=== PATIENT | female | born 1980 | race Two or more races ===

== ENCOUNTER 2016-06-03 07:59 | Emergency (ER) | payer MEDICAID ==
[2016-06-03 08:11] VITALS: O2SAT 96
--- NOTE | 2016-06-03 09:11 | EDPHY ---
H & P Time Seen by Provider: 06/03/16 08:47 HPI/ROS: CHIEF COMPLAINT: Abdominal pain for 2 weeks HISTORY OF PRESENT ILLNESS: This 36-year-old woman presents with chief complaint of left lower quadrant abdominal pain for 2 weeks. She says it radiates into her back and is sharp. She thinks it is her ovary. It is associated with nausea for the last 2 or 3 days and some yellow vaginal discharge and pain with intercourse. She has an IUD in her last vaginal bleeding was 1 month ago. No vomiting and no diarrhea. No recent fall injury or trauma. No urinary symptoms. No fever or chills. REVIEW OF SYSTEMS: Eye: no change in vision ENT: no sore throat Cardiac: Describes central sharp chest pain for the last week which is constant and not radiating. Pulmonary: no cough or SOB Abdomen: HPI Musculoskeletal: no back pain Skin: no rash Neuro: no headache Constitutional: no fever : no urinary symptoms A comprehensive 10 point review of systems is otherwise negative aside from elements mentioned in the history of present illness. PAST MEDICAL HISTORY: Anxiety and depression, cholecystectomy. Has IUD. Social history: Nonsmoker, family history negative for premature coronary disease or venous thromboembolism. General Appearance: Alert and conversant, cooperative. Eyes: No scleral icterus. ENT, Mouth: Normal mucous membranes. Respiratory: Normal respiratory effort, breath sounds equal, lungs are clear to auscultation. Cardiovascular: Regular rate and rhythm. Gastrointestinal: Abdomen is soft and non tender. No rebound or guarding. No focal tenderness. Not distended. Neurological: Alert and oriented x3. Normally conversant. Face symmetric, normal movement and sensation in all extremities. Skin: Warm and dry, no rashes. Musculoskeletal: No peripheral edema and no joint swelling. Psychiatric: Not agitated. Emergency Department course/MDM: EKG, but low suspicion for coronary disease or pulmonary embolism. Plan for pelvic exam, urinalysis and urine test. Low clinical suspicion for acute surgical abdominal process, TOA, ovarian torsion. Pelvic exam performed with nurse Shannen escalona at 9:35 a.m. shows normal external and internal genitalia, no cervical motion tenderness, no significant visible discharge. GC and chlamydia sent. 945: Results discussed, patient does not have clinical exam suggesting need to treat her empirically for PID, will await results of STD testing. 06/04 spoke with registered radiographer, will call in metronidazole 500 bid x 7 d for clue cells and vaginal discharge, rx for bacterial vaginosis. / spoke with registered radiographer re (+) Chlamydia, pt contacted and doxy Rx 100 bid x 10 days called in. Smoking Status: Former smoker Constitutional: Initial Vital Signs Temperature (C) 36.6 C 06/03/16 08:07 Heart Rate 67 06/03/16 08:07 Respiratory Rate 16 06/03/16 08:07 Blood Pressure 112/66 06/03/16 08:07 O2 Sat (%) 96 06/03/16 08:07 O2 Delivery Mode Room Air Allergies/Adverse Reactions: naproxen [Naproxen] Allergy (Intermediate, Verified 03/19/16 10:19) Hives Home Medications: Medication Instructions Recorded Levonorgestrel [Mirena] 1 each IY 10/21/13 Medical Decision Making - Diagnostics EKG Interpretation: 12-lead EKG interpreted by me; official reading is in trace master. My interpretation is sinus rhythm, rate 58, no acute ischemic changes. Differential Diagnosis: Differential diagnosis considered for abdominal pain including but not limited to ectopic, renal colic, PID, appendicitis, cholecystitis, pancreatitis, gastritis and urinary tract infection. Departure - Departure Disposition: Home, Routine, Self-Care Clinical Impression: Bacterial vaginal infection Abdominal pain Qualifiers: Abdominal location: left lower quadrant Qualified Code(s): R10.32 - Left lower quadrant pain Condition: Good Instructions: Chest Pain (ED), Acute Abdominal Pain (ED) Additional Instructions: Normal EKG. Call [phone] tomorrow for results of STD testing. Referrals: NONE *PRIMARY CARE P,. [Primary Care Provider] - As per Instructions Lucero Hall MD [Medical Doctor] - As per Instructions
--- NOTE | 2016-06-03 09:24 | CPEKG ---
Heart Rate: 58 RR Interval: 1034 P-R Interval: 180 QRSD Interval: 86 QT Interval: 400 QTC Interval: 393 P Shannon: 8 QRS Shannon: 24 T Wave Shannon: 16 EKG Severity - NORMAL ECG - EKG Impression: SINUS RHYTHM Electronically Signed By: Darwin Boss 03-Jun-2016 09:25:01
[2016-06-03 09:25] LABS: COLOR YELLOW; LEUKOCYTE ESTERASE,URINE 2+ (NEGATIVE); NITRITE,URINE NEGATIVE (NEGATIVE)
[2016-06-03 09:35] LABS: MUCUS TRACE /lpf (NONE-1+)
[2016-06-03 10:06] VITALS: BP 108/64; PULSE 50; RESP 18; TEMP 98.4
[2016-06-04 10:21] LABS: CHLAMYDIA AMPLIFICATION GENPRB POSITIVE (NEGATIVE)
== END 2016-06-03 10:05 | disposition home or self-care (01) ==
DX: R10.32 Left lower quadrant pain (principal); N76.0 Acute vaginitis; Z90.49 Acquired absence of other specified parts of digestive tract; Z87.891 Personal history of nicotine dependence

== ENCOUNTER 2016-07-11 09:48 | Emergency (ER) | payer MEDICAID ==
[2016-07-11] MEDS ORDERED: PROPARACAINE 0.5% 15 ML OPHT DROP ONE (10:13)
[2016-07-11] MEDS ORDERED: FLUORESCEIN SODIUM 1 MG STRIP OP ONE ×2 (10:13→10:14)
[2016-07-11] MEDS ORDERED: CETIRIZINE 10 MG TAB PO ONE (10:14)
[2016-07-11] MEDS ORDERED: PSEUDOEPHEDRINE HCL 30 MG TAB PO ONE (10:14)
--- NOTE | 2016-07-11 10:27 | EDPHY ---
H & P Stated Complaint: SEEN WED DX CONJUNCTIVITIS/NOT BETTER Time Seen by Provider: 07/11/16 09:57 HPI/ROS: CHIEF COMPLAINT: eye complaints HISTORY OF PRESENT ILLNESS: 36-year-old female presents emergency department complaining of worsening eye discomfort. Patient was seen at an urgent care 5 days ago and diagnosed with a conjunctivitis, she was given sulfacetamide eyedrops. Her symptoms were originally in her right eye and now have moved to her left eye. Patient reports her symptoms are worsening, not improving. The symptoms are associated runny nose, sneezing, itchy ears, itchy throat and her eyes are itching. No fevers or chills, no nausea or vomiting, no swelling in her throat, no difficulty swallowing. Patient reports blurred vision but only because of the tearing in her eyes. REVIEW OF SYSTEMS: A comprehensive 10 point review of systems is otherwise negative aside from elements mentioned in the history of present illness. Source: Patient Exam Limitations: No limitations - Personal History LMP (Females 10-55): IUD In Place Current Tetanus/Diphtheria Vaccine: Yes Tetanus Vaccine Date: 2006 - Medical/Surgical History Hx Asthma: No Hx Chronic Respiratory Disease: No Hx Diabetes: No Hx Cardiac Disease: No Hx Renal Disease: No Hx Cirrhosis: No Hx Alcoholism: No Hx HIV/AIDS: No Hx Splenectomy or Spleen Trauma: No Other PMH: medical anxiety, depression, GERD, obesity. surgery cholycystectomy, . - Social History Smoking Status: Former smoker - Physical Exam Exam: General: Alert, nontoxic. ENT: Tympanic membranes clear, external auditory canal, external ear and surrounding soft tissue including over the mastoid unremarkable. Nasopharynx is pale and boggy, there is clear rhinorrhea. Oropharynx with erythema. There is no exudate. No tonsillar hypertrophy. No asymmetry. The uvula is midline. No elevation of tongue. There is no hoarseness. No drooling, patient has good control of their oral secretions. No trismus. No stridor. Visual Acuity: Noted from Nurse's notes. Pupils: PERRLA, EOMI, no nystagmus, no trauma, no injection. Lids: bilateral edema upper and lower lids Skin: No proptosis, no periorbital erythema, no vesicles Conjunctivae: injected, not icteric, tearing Cornea: Exam with slit lamp and fluoroscein shows no corneal abrasion, negative Angle Anterior chamber: Normal, no hyphema or hypopyon Cardiac: Regular rate and rhythm. Respiratory: Lungs clear to auscultation bilaterally. Neurological: no meningismus. Skin: No rashes. Constitutional: Initial Vital Signs Temperature (C) 36.7 C 07/11/16 09:53 Heart Rate 70 07/11/16 09:53 Respiratory Rate 18 07/11/16 09:53 Blood Pressure 108/64 07/11/16 09:53 O2 Sat (%) 94 07/11/16 09:53 O2 Delivery Mode Room Air Allergies/Adverse Reactions: naproxen [Naproxen] Allergy (Intermediate, Verified 07/11/16 09:52) Hives Home Medications: Medication Instructions Recorded Levonorgestrel [Mirena] 1 each IY 10/21/13 Fluticasone Nasal [Flonase Nasal 1 sprays NASAL DAILY #1 mdi 07/11/16 [place] (RX)] Olopatadine 0.1% [Patanol 0.1% 1 drops EACHEYE Q6-8PRN PRN #1 07/11/16 Opht Drop (RX)] bottle Sodium Sulfacetamide 07/11/16 Medical Decision Making ED Course/Re-evaluation: 36-year-old female presents emergency department with worsening conjunctivitis. Patient was placed on sulfacetamide drops 5 days ago that are not improving and has spread to her left eye. She reports feeling like there is sand and great in her eyes, sneezing, nasal congestion, eye swelling. Patient reports normal seasonal allergies though reports this year is worse and she has never had severe eye symptoms like this before. Fluorescein exam reveals no corneal abrasion. Patient has been diagnosed with an allergic conjunctivitis. I am recommending Zyrtec, Flonase, Zaditor eyedrops and she has been given a prescription for Patanol eyedrops if this added or does not work. Patient is given the name of an door puller for follow-up for symptoms that are not improving. Patient is comfortable with this plan. Differential Diagnosis: Diagnosis considered but not limited to allergic conjunctivitis, bacterial conjunctivitis, corneal abrasion, iritis - Data Points Medications Given: Discontinued Medications Cetirizine HCl (Zyrtec) 10 mg PO EDNOW ONE Stop: 07/11/16 10:15 Last Admin: 07/11/16 10:40 Dose: 10 mg Pseudoephedrine HCl (Sudafed) 30 mg PO EDNOW ONE Stop: 07/11/16 10:15 Last Admin: 07/11/16 10:40 Dose: 30 mg Departure - Departure Disposition: Home, Routine, Self-Care Clinical Impression: Allergic conjunctivitis and rhinitis Qualifiers: Laterality: bilateral Qualified Code(s): H10.13 - Acute atopic conjunctivitis, bilateral Condition: Good Instructions: Allergic Rhinitis (ED), Conjunctivitis (ED) Additional Instructions: Take 10 mg of Zyrtec twice daily. Use over the counter Zatador eye drops- you can buy the generic. Use Flonase 1 spray in each nostril daily for 7 days. Take 30 mg of Sudafed every 6 hours as for congestion. Drink plenty of fluids, use a humidifier at night. Use [id number] saline lubricating drops as much as needed. Fill the Patanol prescription eyedrops if the Zaditor does not work. Follow up with the door puller if symptoms are worsening or not improving in the next 2-3 days. Return to the emergency department for any new symptoms or concerns. Referrals: Benton Dallas MD [Medical Doctor] - As per Instructions ([facility] on- call) Stand Alone Forms: Work Excuse Prescriptions: Fluticasone Nasal [Flonase Nasal [place] (RX)] 1 sprays NASAL DAILY #1 mdi Olopatadine 0.1% [Patanol 0.1% Opht Drop (RX)] 1 drops EACHEYE Q6-8PRN PRN #1 bottle PRN Reason: Dry Irritated Eyes
[2016-07-11 11:13] VITALS: BP 127/88; PULSE 55; RESP 16; TEMP 97.7; O2SAT 96
== END 2016-07-11 11:13 | disposition home or self-care (01) ==
DX: H10.13 Acute atopic conjunctivitis, bilateral (principal); Z87.891 Personal history of nicotine dependence

== ENCOUNTER 2016-07-26 22:54 | Emergency (ER) | payer MEDICAID ==
[2016-07-26 23:04] VITALS: BP 130/67; PULSE 62; RESP 16; TEMP 98.4; O2SAT 97
[2016-07-26] MEDS ORDERED: IBUPROFEN 200 MG TAB PO ONE ×2 (23:19→23:26)
[2016-07-26 23:28] LABS: COLOR YELLOW; LEUKOCYTE ESTERASE,URINE 3+ (NEGATIVE); NITRITE,URINE NEGATIVE (NEGATIVE)
[2016-07-26 23:35] LABS: BACTERIA TRACE /hpf (NONE SEEN)
--- NOTE | 2016-07-27 00:07 | EDPHY ---
H & P Stated Complaint: back/abd pain HPI/ROS: Chief complaint: Back pain HPI: 36-year-old obese woman with a history of chronic back pain presenting with worsening of her pain on the left side for the last several days. She has been taking ibuprofen 600 mg every morning with no significant relief. She is also having some low abdominal cramping. No nausea or vomiting or diarrhea. No new numbness or weakness. She is ambulating with some discomfort without other difficulty. No fevers or chills. No history of IV drug use or other risk factors for infection. No urinary urgency or frequency. ROS: 10 point Review of Systems is negative except as noted in the HPI. PMH: Chronic back pain Social History: No smoking, no alcohol, no recreational drug use Family History: non-contributory Physical Exam: Gen: Awake, Alert, No Distress HEENT: Nose: no rhinorrhea Eyes: PERRLA, EOMI Mouth: Moist mucosa Abd: Soft, non-tender, no guarding, obese Back: no CVA tenderness, no midline tenderness mild left paraspinal tenderness reproducing presenting complaint Ext: no edema, non-tender Skin: no rash Neuro: CN II-XII intact, Sensation grossly intact, Strength 5/5 in bilateral upper and lower extremities - Personal History LMP (Females 10-55): Extended Cycle BCP/Inj Current Tetanus/Diphtheria Vaccine: No Current Tetanus Diphtheria and Acellular Pertussis (TDAP): No Tetanus Vaccine Date: 2006 - Medical/Surgical History Hx Asthma: No Hx Chronic Respiratory Disease: No Hx Diabetes: No Hx Cardiac Disease: No Hx Renal Disease: No Hx Cirrhosis: No Hx Alcoholism: No Hx HIV/AIDS: No Hx Splenectomy or Spleen Trauma: No Other PMH: medical anxiety, depression, GERD, obesity. surgery cholycystectomy, . - Social History Smoking Status: Former smoker Constitutional: Initial Vital Signs Temperature (C) 36.9 C 07/26/16 23:02 Heart Rate 62 07/26/16 23:02 Respiratory Rate 16 07/26/16 23:02 Blood Pressure 130/67 H 07/26/16 23:02 O2 Sat (%) 97 07/26/16 23:02 O2 Delivery Mode Room Air Allergies/Adverse Reactions: naproxen [Naproxen] Allergy (Intermediate, Verified 07/26/16 23:01) Hives Home Medications: Medication Instructions Recorded Levonorgestrel [Mirena] 1 each IY 10/21/13 Nitrofurantoin Monohyd/M-Cryst 100 mg PO BID #10 capsule 07/27/16 [Macrobid 100 mg Capsule] Medical Decision Making ED Course/Re-evaluation: Urinalysis consistent with urinary tract infection. I believe this is exacerbating her chronic back pain. Will treat her with antibiotics. She can increase her ibuprofen. Will also give her a to go pack of hydrocodone here to get her pain under control but will not be giving her prescription now is anticipate treatment of her infection will improve her pain. - Data Points Laboratory Results: 07/26/16 23:21 Urine Color YELLOW Urine Appearance HAZY Urine pH 5.0 (5.0-7.5) Ur Specific [place] 1.018 (1.002-1.030) Urine Protein NEGATIVE (NEGATIVE) Urine Ketones NEGATIVE (NEGATIVE) Urine Blood 1+ H (NEGATIVE) Urine Nitrate NEGATIVE (NEGATIVE) Urine Bilirubin NEGATIVE (NEGATIVE) Urine Urobilinogen NEGATIVE EU EU (0.2-1.0) Ur Leukocyte Esterase 3+ H (NEGATIVE) Urine RBC 5-10 /hpf H /hpf (0-3) Urine WBC 10-15 /hpf H /hpf (0-3) Ur Epithelial Cells TRACE /lpf /lpf (NONE-1+) Urine Bacteria TRACE /hpf H /hpf (NONE SEEN) Urine Glucose NEGATIVE (NEGATIVE) Departure - Departure Disposition: Home, Routine, Self-Care Clinical Impression: Urinary tract infection, Back pain Condition: Good Instructions: Back Pain (ED), Urinary Tract Infection in Women (ED) Additional Instructions: He may take ibuprofen 600 mg every 6-8 hours as needed for aches and pains. Take her full course of antibiotics. Follow up with primary care physician in 3-4 days for re-evaluation. Referrals: NONE *PRIMARY CARE P,. [Primary Care Provider] - As per Instructions Nancy Romo MD [[facility] [place]] - As per Instructions Prescriptions: Nitrofurantoin Monohyd/M-Cryst [Macrobid 100 mg Capsule] 100 mg PO BID #10 capsule
[2016-07-27] MEDS ORDERED: HYDROCOD/APAP 5/325 PREPACK#6 BTL TAKEHOME ONE (00:17)
[2016-07-27] MEDS ORDERED: NITROFURANTOIN 100MG PREPACK#2 BTL TAKEHOME ONE (00:17)
== END 2016-07-27 00:31 | disposition home or self-care (01) ==
DX: N39.0 Urinary tract infection, site not specified (principal); B96.89 Other specified bacterial agents as the cause of diseases classified elsewhere; Z87.891 Personal history of nicotine dependence; Z90.49 Acquired absence of other specified parts of digestive tract

== ENCOUNTER 2016-08-03 23:17 | Emergency (ER) | payer MEDICAID ==
[2016-08-03 23:25] VITALS: RESP 20; O2SAT 93
[2016-08-03 23:59] LABS: COLOR YELLOW; LEUKOCYTE ESTERASE,URINE 2+ (NEGATIVE); NITRITE,URINE NEGATIVE (NEGATIVE)
[2016-08-04] MEDS ORDERED: NS 1,000 ML IV ONE (00:02)
--- NOTE | 2016-08-04 00:02 | EDPHY ---
H & P Stated Complaint: back pain not improving, fever Time Seen by Provider: 08/03/16 23:30 HPI/ROS: HPI The patient presents with fever for the last 1 day as high as 101.7, improved with ibuprofen at home. This is associated with left-sided back pain which she has had for the last 5 days. She also has nausea and says that she vomits once each morning. She is otherwise able to tolerate fluids and food by mouth. The pain in her back is pressure like in nature, does not radiate. She does have chronic back pain but says this feels different somehow. She denies any urinary symptoms She was seen in the emergency room about 1 week ago and was diagnosed with urinary tract infection. Her symptoms have not improved.. REVIEW OF SYSTEMS Constitutional: No fever, no chills. Eyes: No discharge. ENT: No sore throat. Cardiovascular: No chest pain, no palpitations. Respiratory: No cough, no shortness of breath. Gastrointestinal: See HPI Genitourinary: No hematuria. Musculoskeletal: No back pain. Skin: No rashes. Neurological: No headache. PMHx: Chronic back pain PHYSICAL General Appearance: Alert, no distress Eyes: Pupils equal and round no pallor or injection ENT, Mouth: Mucous membranes moist Respiratory: There are no retractions, lungs are clear to auscultation Cardiovascular: Regular rate and rhythm Gastrointestinal: Abdomen is soft and non-tender, no masses, bowel sounds normal Back: No midline tenderness, mild left-sided CVAT Neurological: A&O, moves all extremities Skin: Warm and dry, no rashes Musculoskeletal: Neck is supple non tender Extremities: symmetrical, full range of motion Psychiatric: Patient is oriented X 3, there is no agitation Source: Patient Exam Limitations: No limitations - Personal History LMP (Females 10-55): IUD In Place Tetanus Vaccine Date: 2006 - Medical/Surgical History Hx Asthma: No Hx Chronic Respiratory Disease: No Hx Diabetes: No Hx Cardiac Disease: No Hx Renal Disease: No Hx Cirrhosis: No Hx Alcoholism: No Hx HIV/AIDS: No Hx Splenectomy or Spleen Trauma: No Other PMH: medical anxiety, depression, GERD, obesity. surgery cholycystectomy, . - Social History Smoking Status: Former smoker Constitutional: Initial Vital Signs Temperature (C) 37.6 C 08/03/16 23:22 Heart Rate 78 08/03/16 23:22 Respiratory Rate 20 08/03/16 23:22 Blood Pressure 125/82 H 08/03/16 23:22 O2 Sat (%) 93 08/03/16 23:22 O2 Delivery Mode Room Air Allergies/Adverse Reactions: naproxen [Naproxen] Allergy (Intermediate, Verified 08/03/16 23:22) Hives Home Medications: Medication Instructions Recorded Levonorgestrel [Mirena] 1 each IY 10/21/13 Nitrofurantoin Monohyd/M-Cryst 100 mg PO BID #10 capsule 07/27/16 [Macrobid 100 mg Capsule] levOFLOXACIN [Levofloxacin] 750 mg PO DAILY #7 tablet 08/04/16 Medical Decision Making Differential Diagnosis: This is a 36-year-old female with history of low back pain, recent diagnosis of UTI who presents from home with fevers today as high as 101.7 per her report, nausea, intermittent vomiting, left-sided flank pain. On exam she has normal vital signs, she has CVA tenderness on the left. She does not have any midline spinal tenderness. Differential diagnoses considered include urinary tract infection, ureterolithiasis, pyelonephritis, less likely epidural spinal abscess given no midline tenderness or risk factors. In the emergency room patient was given IV fluids for nausea and vomiting, labs were checked and revealed signs of urinary tract infection. Given her symptomatology, she was given a dose of ceftriaxone. I reviewed her urine cultures historically and it seems they are mostly contaminated. His I will treat her with levofloxacin for pyelonephritis. I have encouraged her to find a primary care doctor, she does not want to be seen at [facility]. I have discussed return precautions with her. - Data Points Laboratory Results: Laboratory Results 08/04/16 00:15 08/04/16 00:15 08/04/16 08/04/16 08/04/16 00:15 00:15 00:15 WBC 6.55 10^3/uL 10^3/uL (3.80-9.50) RBC 4.66 10^6/uL 10^6/uL (4.18-5.33) Hgb 12.9 g/dL g/dL (12.6-16.3) Hct 38.8 % % (38.0-47.0) MCV 83.3 fL fL (81.5-99.8) MCH 27.7 pg L pg (27.9-34.1) MCHC 33.2 g/dL g/dL (32.4-36.7) RDW 13.8 % % (11.5-15.2) Plt Count 208 10^3/uL 10^3/uL (150-400) MPV 10.4 fL fL (8.7-11.7) Neut % (Auto) 64.6 % % (39.3-74.2) Lymph % (Auto) 26.3 % % (15.0-45.0) [place] % (Auto) 6.9 % % (4.5-13.0) Eos % (Auto) 1.7 % % (0.6-7.6) Baso % (Auto) 0.2 % L % (0.3-1.7) Nucleat RBC Rel Count 0.0 % % (0.0-0.2) Absolute Neuts (auto) 4.24 10^3/uL 10^3/uL (1.70-6.50) Absolute Lymphs (auto) 1.72 10^3/uL 10^3/uL (1.00-3.00) Absolute Monos (auto) 0.45 10^3/uL 10^3/uL (0.30-0.80) Absolute Eos (auto) 0.11 10^3/uL 10^3/uL (0.03-0.40) Absolute Basos (auto) 0.01 10^3/uL L 10^3/uL (0.02-0.10) Absolute Nucleated RBC 0.00 10^3/uL 10^3/uL (0-0.01) Immature Gran % 0.3 % % (0.0-1.1) Immature Gran # 0.02 10^3/uL 10^3/uL (0.00-0.10) Sodium 142 mEq/L mEq/L (134-144) Potassium 4.0 mEq/L mEq/L (3.5-5.2) Chloride 107 mEq/L mEq/L (97-110) Carbon Dioxide 24 mEq/l mEq/l (22-31) Anion Gap 11 mEq/L mEq/L (8-16) BUN 15 mg/dL mg/dL (7-23) Creatinine 0.8 mg/dL mg/dL (0.6-1.0) Estimated GFR > 60 Glucose 104 mg/dL H mg/dL (70-100) Calcium 8.7 mg/dL mg/dL (8.5-10.4) Beta HCG, Qual NEGATIVE Urine Color Urine Appearance Urine pH Ur Specific [place] Urine Protein Urine Ketones Urine Blood Urine Nitrate Urine Bilirubin Urine Urobilinogen Ur Leukocyte Esterase Urine RBC Urine WBC Ur Epithelial Cells Urine Glucose 08/03/16 23:45 WBC RBC Hgb Hct MCV MCH MCHC RDW Plt Count MPV Neut % (Auto) Lymph % (Auto) [place] % (Auto) Eos % (Auto) Baso % (Auto) Nucleat RBC Rel Count Absolute Neuts (auto) Absolute Lymphs (auto) Absolute Monos (auto) Absolute Eos (auto) Absolute Basos (auto) Absolute Nucleated RBC Immature Gran % Immature Gran # Sodium Potassium Chloride Carbon Dioxide Anion Gap BUN Creatinine Estimated GFR Glucose Calcium Beta HCG, Qual Urine Color YELLOW Urine Appearance CLEAR Urine pH 5.0 (5.0-7.5) Ur Specific [place] 1.021 (1.002-1.030) Urine Protein NEGATIVE (NEGATIVE) Urine Ketones NEGATIVE (NEGATIVE) Urine Blood 1+ H (NEGATIVE) Urine Nitrate NEGATIVE (NEGATIVE) Urine Bilirubin NEGATIVE (NEGATIVE) Urine Urobilinogen NEGATIVE EU EU (0.2-1.0) Ur Leukocyte Esterase 2+ H (NEGATIVE) Urine RBC 10-15 /hpf H /hpf (0-3) Urine WBC 10-15 /hpf H /hpf (0-3) Ur Epithelial Cells TRACE /lpf /lpf (NONE-1+) Urine Glucose NEGATIVE (NEGATIVE) Medications Given: Discontinued Medications Sodium Chloride (Ns) 1,000 mls @ 0 mls/hr IV ONCE ONE PRN Reason: Wide Open Stop: 08/04/16 00:03 Last Admin: 08/04/16 00:15 Dose: 1,000 mls Ceftriaxone Sodium/Dextrose (Rocephin 1 Gm (Premix)) 50 mls @ 100 mls/hr IV EDNOW ONE PRN Reason: Protocol Stop: 08/04/16 01:03 Last Admin: 08/04/16 01:06 Dose: 50 mls Departure - Departure Disposition: Home, Routine, Self-Care Clinical Impression: Acute pyelonephritis Condition: Good Instructions: Kidney Infection (ED) Additional Instructions: Please return to the emergency room if your worse in any way. Referrals: NONE *PRIMARY CARE P,. [Primary Care Provider] - As per Instructions Prescriptions: levOFLOXACIN [Levofloxacin] 750 mg PO DAILY #7 tablet
[2016-08-04 00:23] LABS: % IMMATURE GRANULYOCYTES 0.3 % (0.0-1.1); ABSOLUTE IMMATURE GRANULOCYTES 0.02 10^3/uL (0.00-0.10); ADD DIFF? NO; ADD MORPH? NO; ADD SCAN? NO; ATYPICAL LYMPHOCYTE FLAG 40 (0-99); FRAGMENT RBC FLAG 0 (0-99); HEMATOCRIT 38.8 % (38.0-47.0); HEMOGLOBIN 12.9 g/dL (12.6-16.3); LEFT SHIFT FLG 0 (0-99); LIPEMIA HEMOLYSIS FLAG 80 (0-99); MEAN CELL HEMOGLOBIN 27.7 pg (27.9-34.1); MEAN CELL HEMOGLOBIN CONCENTR. 33.2 g/dL (32.4-36.7); MEAN CELL VOLUME 83.3 fL (81.5-99.8); MEAN PLATELET VOLUME 10.4 fL (8.7-11.7); PLATELET CLUMPS FLAG 0 (0-99); PLATELET COUNT 208 10^3/uL (150-400); RED BLOOD CELL COUNT 4.66 10^6/uL (4.18-5.33); RED CELL DISTRIBUTION WIDTH 13.8 % (11.5-15.2)
[2016-08-04 00:35] LABS: ANION GAP 11 mEq/L (8-16); CALCIUM 8.7 mg/dL (8.5-10.4); CARBON DIOXIDE 24 mEq/l (22-31); CHLORIDE 107 mEq/L (97-110); CREATININE 0.8 mg/dL (0.6-1.0); GLOMERULAR FILTRATION RATE > 60; GLUCOSE 104 mg/dL (70-100); SODIUM 142 mEq/L (134-144)
[2016-08-04 01:58] VITALS: BP 128/76; PULSE 70; TEMP 98.1
== END 2016-08-04 01:58 | disposition home or self-care (01) ==
DX: N10 Acute pyelonephritis (principal); B96.89 Other specified bacterial agents as the cause of diseases classified elsewhere; Z87.891 Personal history of nicotine dependence
CPT/HCPCS: 96365; J0696

== ENCOUNTER 2016-11-11 19:55 | Emergency (ER) | payer MEDICAID ==
[2016-11-11 20:10] VITALS: TEMP 98.2
--- NOTE | 2016-11-11 21:02 | EDPHY ---
H & P Time Seen by Provider: 11/11/16 20:20 HPI/ROS: CHIEF COMPLAINT: Left ankle injury HISTORY OF PRESENT ILLNESS: 36-year-old female presents to the emergency department with injury isolated to her left ankle. The patient states around 4: 00 p.m. she was running around the house trying to find something that she thought was burning and she then noted pain in her left ankle. She denies any specific known injury or trauma. She has pain especially when she tries to move it or when she tries to bear weight. She denies any other injury or trauma. ROS: Denies numbness or tingling in her toes, pain in her left knee or hip. Past Medical/Surgical History: IUD, anxiety, depression, GERD, obesity, cholecystectomy Social History: Lives in [place] Smoking Status: Former smoker Physical Exam: On examination there is no obvious effusion or swelling noted to the left ankle. She has reproducible pain with palpation to the medial aspect of her left ankle just distal to the medial malleolus. She has limited dorsiflexion secondary to pain. She has full plantar flexion. Normal sensation to light touch with normal 2 point discrimination. Strong dorsalis pedis pulse on the dorsal aspect of the left foot. Gait is not tested due to pain. Constitutional: Initial Vital Signs Temperature (C) 36.8 C 11/11/16 20:06 Heart Rate 66 11/11/16 20:06 Respiratory Rate 18 11/11/16 20:06 Blood Pressure 123/75 H 11/11/16 20:06 O2 Sat (%) 95 11/11/16 20:06 O2 Delivery Mode Room Air Allergies/Adverse Reactions: naproxen [Naproxen] Allergy (Intermediate, Verified 11/11/16 20:04) Hives Home Medications: Medication Instructions Recorded Levonorgestrel [Mirena] 1 each IY 10/21/13 Ibuprofen 11/11/16 traMADol 11/11/16 MDM/Departure - MDM Imaging Results: X-rays of the left ankle reveal avulsion fracture to the medial malleolus. This is reviewed by myself the PAC system. Radiology interpretation to follow. Imaging: I viewed and interpreted images myself Procedures: Patient was placed in a Fontenot boot and examined post application in good placement with normal SECURITY FLEX OFFICER. ED Course/Re-evaluation: 36-year-old female presents to the emergency department with left ankle injury. X-rays reveal avulsion fracture to the medial malleolus. She was placed in a Fontenot boot, given crutches and will be nonweightbearing. She was given orthopedic referral. - Depart Disposition: Home, Routine, Self-Care Clinical Impression: Closed left ankle fracture Qualifiers: Encounter type: initial encounter Qualified Code(s): S82.892A - Other fracture of left lower leg, initial encounter for closed fracture Condition: Good Instructions: Ankle Fracture (ED) Additional Instructions: Fontenot boot, use crutches, nonweightbearing. Ibuprofen 600 mg every 8 hours as needed for pain. Follow up with orthopedic surgeon in 1 week to recheck. Referrals: Carlos Thompson MD [Medical Doctor] - 2-3 days without fail (Orthopedic surgeon on-call)
[2016-11-11 22:40] VITALS: BP 114/50; PULSE 83; RESP 16; O2SAT 94
== END 2016-11-11 22:39 | disposition home or self-care (01) ==
DX: S82.892A Other fracture of left lower leg, initial encounter for closed fracture (principal); Z87.891 Personal history of nicotine dependence; X58.XXXA Exposure to other specified factors, initial encounter; Y92.009 Unspecified place in unspecified non-institutional (private) residence as the place of occurrence of the external cause; Y99.8 Other external cause status; Y93.02 Activity, running
CPT/HCPCS: L4386

== ENCOUNTER 2016-11-16 13:58 | Emergency (ER) | payer MEDICAID ==
[2016-11-16 14:04] VITALS: TEMP 97.7
--- NOTE | 2016-11-16 14:26 | EDPHY ---
H & P Time Seen by Provider: 11/16/16 14:15 HPI/ROS: CHIEF COMPLAINT: Great toe numbness HISTORY OF PRESENT ILLNESS: This patient is a 36 year old female presenting for evaluation of pain and numbness in her toes developing following an ankle avulsion fracture five days ago. She was evaluated here 11/11/16 and diagnosed with an avulsion fx of the medial malleolus. She has been wearing her Fontenot boot since that time, except when sleeping, and using her crutches. She has developed pain and tingling in her toes, primarily in her great toe. The tingling in her great toe is constant , elsewhere in her foot her symptoms are intermittent. She endorses occasional pain radiating up to her knee. She is scheduled for an appointment with an orthopedic surgeon on Tuesday. No trauma or other complaints. REVIEW OF SYSTEMS: A 10 point review of systems was performed and is negative with the exception of the elements mentioned in the history of present illness. Past Medical/Surgical History: Anxiety, Depression, GERD, Obesity, Cholecystectomy, L foot fracture Social History: Lives in [facility]. . Smoking Status: Former smoker Physical Exam: General Appearance: Alert Neurological: decreased sensation to light touch on the dorsal and plantar aspects of the first toe. Normal sensation on the lateral/medial aspect of the first toe, the 2nd-5th toes and the remainder of the foot. Skin: Warm and dry, no erythema or swelling Extremities: Tenderness over 1st and 2nd metatarsals Constitutional: Initial Vital Signs Temperature (C) 36.5 C 11/16/16 14:01 Heart Rate 72 11/16/16 14:01 Respiratory Rate 18 11/16/16 14:01 Blood Pressure 111/73 11/16/16 14:01 O2 Sat (%) 95 11/16/16 14:01 O2 Delivery Mode Room Air Allergies/Adverse Reactions: naproxen [Naproxen] Allergy (Intermediate, Verified 11/16/16 14:01) Hives Home Medications: Medication Instructions Recorded Levonorgestrel [Mirena] 1 each IY 10/21/13 Ibuprofen 11/11/16 traMADol 11/11/16 Medical Decision Making ED Course/Re-evaluation: 36 year old female presents paresthesias of the great toe following an ankle avulsion fracture 5 days ago. Plan for foot x-ray. Left foot x-ray is normal. Paresthesias likely secondary to boot, encouraged pt to removethe boot when sitting/supine. No swelling of foot/ankle, so swelling is not the cause. Plan to discharge home in good condition. She will follow up with orthopedics this Tuesday as scheduled. She will remove her boot while sitting and sleeping. Return precautions discussed. The patient is comfortable with this plan. Departure - Departure Disposition: Home, Routine, Self-Care Clinical Impression: Paresthesia of left foot Condition: Good Instructions: Ankle Fracture (ED), Paresthesia (ED) Additional Instructions: 1. Follow up with the employee development specialist as scheduled. 2. Keep your ankle elevated whenever possible. You may keep your boot off when sitting or sleeping. Wear it at all times when walking until follow up with the employee development specialist. 3. Return to the emergency department for worsening pain, swelling, numbness, weakness or other concerns. Referrals: Delia Staley MD [Primary Care Provider] - As per Instructions Carlos Thompson MD [Medical Doctor] - As per Instructions Report Scribed for: Nancy Mendieta Report Scribed by: Jasmyn Gates Date of Report: 11/16/16 Time of Report: 14:28 Physician Review and Approval Statement: 11/16/16 14:28 Portions of this note were transcribed by a medical records custodian. I personally performed a history, physical exam, medical decision making, and confirmed accuracy of information the transcribed note.
[2016-11-16 15:36] VITALS: BP 112/85; PULSE 80; RESP 16; O2SAT 98
== END 2016-11-16 15:36 | disposition home or self-care (01) ==
DX: R20.2 Paresthesia of skin (principal); Z87.891 Personal history of nicotine dependence

== ENCOUNTER 2017-01-28 16:10 | Emergency (ER) | payer MEDICAID ==
[2017-01-28 16:16] VITALS: TEMP 98.2
--- NOTE | 2017-01-28 16:55 | EDPHY ---
H & P Time Seen by Provider: 01/28/17 16:47 HPI/ROS: CHIEF COMPLAINT: Light green/klein stool color HISTORY OF PRESENT ILLNESS: The patient is a 36 y/o female complaining of a light green/klein color to her stool today. She has also had an increase in bowel movements today. She has some nausea, abdominal cramping, a burning sensation in her stomach, and feels bloated. Denies changes in color of urine, fever, recent foreign travel, vomiting, diarrhea or other pertinent symptoms. REVIEW OF SYSTEMS: Aside from elements discussed in the HPI, a comprehensive 10-point review of systems was reviewed and is negative. Past Medical/Surgical History: PMH: anxiety, depression, GERD, obesity PSH: Cholecystectomy Social History: Lives in [place], marijuana use, single Smoking Status: Former smoker Physical Exam: General Appearance: Alert, no distress Eyes: Pupils equal and round, no conjunctival pallor or injection ENT, Mouth: Mucous membranes moist Neck: Normal inspection Respiratory: Lungs are clear to auscultation Cardiovascular: Regular rate and rhythm Gastrointestinal: RUQ tenderness. Abdomen is soft Neurological: A&O, nonfocal, normal gait Skin: Warm and dry, no rash Extremities: Nontender, no pedal edema Psychiatric: Mood and affect normal Constitutional: Initial Vital Signs Temperature (C) 36.8 C 01/28/17 16:14 Heart Rate 58 L 01/28/17 16:14 Respiratory Rate 17 01/28/17 16:14 Blood Pressure 133/83 H 01/28/17 16:14 O2 Sat (%) 96 01/28/17 16:14 O2 Delivery Mode Room Air Allergies/Adverse Reactions: naproxen [Naproxen] Allergy (Intermediate, Verified 01/28/17 16:13) Hives Home Medications: Medication Instructions Recorded Levonorgestrel [Mirena] 1 each IY 10/21/13 Ibuprofen 11/11/16 Medical Decision Making - Diagnostics Imaging Results: Right upper quadrant ultrasound read by the radiologist reveals a fatty liver, otherwise normal. Imaging: Discussed imaging studies w/ scallop dredger Radiologist, I viewed and interpreted images myself ED Course/Re-evaluation: The patient is a 36 y/o female presenting with light green/klein stool color. On exam she has RUQ tenderness. Concerning for acute hepatitis. 1749: Spoke with radiologist, he reports there is hepatomegaly, but no biliary obstruction. 1851: Patient's liver tests are negative; no evidence of acute hepatitis. Sx possibly secondary to dietary intake. Has not had diarrhea, doubt infectious etiology. 1854: Reassessed patient and discussed imaging and laboratory findings. She will need to follow up with her primary care provider. Return precautions provided; patient is comfortable with this plan. Differential Diagnosis: Differential diagnosis includes does not limited to acute viral hepatitis, cholecystitis, medication effect, infectious diarrhea. - Data Points Laboratory Results: Laboratory Results 01/28/17 18:10 01/28/17 18:10 Departure - Departure Disposition: Home, Routine, Self-Care Clinical Impression: Abdominal pain, Klein stool Condition: Good Instructions: Abdominal Pain (ED) Additional Instructions: Follow up with your primary care provider in the next week for unimproved symptoms. Return to the Emergency Department for fever, urinary changes, shortness of breath, chest pain, increasing pain or other worsening of condition. Referrals: Delia Staley MD [Primary Care Provider] - As per Instructions Report Scribed for: Nancy Mendieta Report Scribed by: Tiffany Hunter Date of Report: 01/28/17 Time of Report: 16:54 Physician Review and Approval Statement: 01/28/17 16:55 Portions of this note were transcribed by a medical equipment repair technician. I personally performed a history, physical exam, medical decision making, and confirmed accuracy of information the transcribed note.
[2017-01-28 18:17] LABS: % IMMATURE GRANULYOCYTES 0.3 % (0.0-1.1); ABSOLUTE IMMATURE GRANULOCYTES 0.03 10^3/uL (0.00-0.10); ADD DIFF? NO; ADD MORPH? NO; ADD SCAN? NO; ATYPICAL LYMPHOCYTE FLAG 10 (0-99); FRAGMENT RBC FLAG 0 (0-99); HEMATOCRIT 38.7 % (38.0-47.0); LEFT SHIFT FLG 0 (0-99); LIPEMIA HEMOLYSIS FLAG 80 (0-99); MEAN CELL HEMOGLOBIN 28.6 pg (27.9-34.1); MEAN CELL HEMOGLOBIN CONCENTR. 33.6 g/dL (32.4-36.7); MEAN CELL VOLUME 85.1 fL (81.5-99.8); MEAN PLATELET VOLUME 10.4 fL (8.7-11.7); PLATELET CLUMPS FLAG 50 (0-99); PLATELET COUNT 221 10^3/uL (150-400); RED BLOOD CELL COUNT 4.55 10^6/uL (4.18-5.33); RED CELL DISTRIBUTION WIDTH 14.1 % (11.5-15.2)
[2017-01-28 18:40] LABS: ALANINE AMINOTRANSFERASE 34 IU/L (9-52); ALKALINE PHOSPHATASE 75 IU/L (38-126); ANION GAP 13 mEq/L (8-16); ASPARTATE AMINOTRANSFERASE 21 IU/L (14-46); BILIRUBIN,TOTAL 0.3 mg/dL (0.1-1.4); BILIRUBIN-CONJUGATED 0.3 mg/dL (0.0-0.5); CALCIUM 9.3 mg/dL (8.5-10.4); CARBON DIOXIDE 18 mEq/l (22-31); CHLORIDE 106 mEq/L (97-110); CREATININE 0.7 mg/dL (0.6-1.0); GLOMERULAR FILTRATION RATE > 60; GLUCOSE 86 mg/dL (70-100); SODIUM 137 mEq/L (134-144); TOTAL PROTEIN 7.3 g/dL (6.3-8.2)
[2017-01-28 19:26] VITALS: BP 134/80; PULSE 81; RESP 16; O2SAT 98
== END 2017-01-28 19:26 | disposition home or self-care (01) ==
DX: R19.5 Other fecal abnormalities (principal); R10.11 Right upper quadrant pain; Z90.49 Acquired absence of other specified parts of digestive tract; Z87.891 Personal history of nicotine dependence

== ENCOUNTER 2017-02-19 12:24 | Emergency (ER) | payer MEDICAID ==
[2017-02-19 12:30] VITALS: RESP 18; TEMP 97.7
--- NOTE | 2017-02-19 12:34 | EDPHY ---
H & P Stated Complaint: HANNAH/NAUSEA X 1 WEEK/SAW PCP WED RX FLEXERIL/NOT BETTER Time Seen by Provider: 02/19/17 12:31 HPI/ROS: CHIEF COMPLAINT: [ ] HISTORY OF PRESENT ILLNESS: [Need 4: Location, Duration, Severity, Quality, Context, Timing Modifying Factors, Associated S&S] REVIEW OF SYSTEMS: A comprehensive 10 point review of systems is otherwise negative aside from elements mentioned in the history of present illness. - Personal History LMP (Females 10-55): IUD In Place Current Tetanus/Diphtheria Vaccine: Yes Tetanus Vaccine Date: 2006 - Medical/Surgical History Hx Asthma: No Hx Chronic Respiratory Disease: No Hx Diabetes: No Hx Cardiac Disease: No Hx Renal Disease: No Hx Cirrhosis: No Hx Alcoholism: No Hx HIV/AIDS: No Hx Splenectomy or Spleen Trauma: No Other PMH: anxiety, depression, GERD, obesity,. cholycystectomy, , L foot fracture - Social History Smoking Status: Former smoker - Physical Exam Exam: General Appearance: [Alert, no distress] Eyes: [Pupils equal and round no pallor or injection] ENT, Mouth: [Mucous membranes moist] Respiratory: [There are no retractions, lungs are clear to auscultation] Cardiovascular: [Regular rate and rhythm] Gastrointestinal: [Abdomen is soft and nontender, no masses, bowel sounds normal] Neurological: [A&O, normal motor function, normal sensory exam, normal cranial nerves] Skin: [Warm and dry, no rashes] Musculoskeletal: [Neck is supple nontender] Extremities: [symmetrical, full range of motion] Psychiatric: [Patient is oriented X 3, there is no agitation] Constitutional: Initial Vital Signs Temperature (C) 36.5 C 02/19/17 12:28 Heart Rate 62 02/19/17 12:28 Respiratory Rate 18 02/19/17 12:28 Blood Pressure 146/86 H 02/19/17 12:28 O2 Sat (%) 94 02/19/17 12:28 O2 Delivery Mode Room Air Allergies/Adverse Reactions: naproxen [Naproxen] Allergy (Intermediate, Verified 02/19/17 12:27) Hives Home Medications: Medication Instructions Recorded Levonorgestrel [Mirena] 1 each IY 10/21/13 Ibuprofen 11/11/16 Flexeril 02/19/17 Departure - Departure Referrals: Delia Staley MD [Primary Care Provider] - As per Instructions
--- NOTE | 2017-02-19 12:54 | EDPHY ---
H & P Stated Complaint: HANNAH/NAUSEA X 1 WEEK/SAW PCP WED RX FLEXERIL/NOT BETTER Time Seen by Provider: 02/19/17 12:31 HPI/ROS: CHIEF COMPLAINT: Headache, nausea, hand numbness HISTORY OF PRESENT ILLNESS: The patient is a 37 y/o female complaining of a right-sided headache for 9 days. The headache came on gradually but has been fairly constant since it began. When her headache worsens, she begins to feel nauseous. She is also having intermittent episodes of bilateral hand numbness that last around 1 minute. She saw her primary care physician and Flexeril was prescribed for tension headache. This medication has not provided much improvement for her headache, but she is able to sleep. However, she does not feel rested. She occasionally has neck pain, but it is not painful today. Denies cough, recent cold, sinus drainage, fever, vomiting, and lower extremity weakness. REVIEW OF SYSTEMS: A ten point review of systems was performed and is negative with the exception of the items mentioned in the HPI. Past medical history: Anxiety Depression GERD Obesity Past surgical history: Cholecystectomy Family history: Sister has frequent migraines Social history: Boyfriend at bedside Lives in [place] Works at [employer] General Appearance: Obese. Alert. Vital signs reviewed. Blood pressure 146/ 86. Afebrile. Eyes: Pupils equal and round, no conjunctival injection, no discharge. Anicteric. ENT: No sinus tenderness Mouth: Mucous membranes are moist, no oropharyngeal erythema or edema. Neck: No lymphadenopathy, supple. Respiratory: Lungs are clear to auscultation; no wheezes, rales, or rhonchi. Cardiovascular: Regular rate and rhythm; no murmur, rub, or gallop. Gastrointestinal: Abdomen is soft and nontender, no masses or organomegaly, bowel sounds normal. Skin: Warm and dry, no rashes on exposed skin, normal color. Back: Nontender to palpation over the thoracolumbar spine. No CVAT. Extremities: No lower extremity edema, no calf tenderness or swelling. Neurological: Alert and oriented. Moving all four extremities easily and equally. Cranial nerves II through XII are examined and are intact (visual acuity not tested). Strength is 5 over 5 bilaterally with testing of all major motor groups. Sensation is intact to light touch over all 4 extremities. Deep tendon reflexes are 2+ in the biceps and 1+ in the knees bilaterally. Finger-to- nose is performed accurately. Psychiatric: Normal affect. - Personal History LMP (Females 10-55): IUD In Place Current Tetanus/Diphtheria Vaccine: Yes Tetanus Vaccine Date: 2006 - Medical/Surgical History Hx Asthma: No Hx Chronic Respiratory Disease: No Hx Diabetes: No Hx Cardiac Disease: No Hx Renal Disease: No Hx Cirrhosis: No Hx Alcoholism: No Hx HIV/AIDS: No Hx Splenectomy or Spleen Trauma: No Other PMH: anxiety, depression, GERD, obesity,. cholycystectomy, , L foot fracture - Social History Smoking Status: Former smoker Constitutional: Initial Vital Signs Temperature (C) 36.5 C 02/19/17 12:28 Heart Rate 62 02/19/17 12:28 Respiratory Rate 18 02/19/17 12:28 Blood Pressure 146/86 H 02/19/17 12:28 O2 Sat (%) 94 02/19/17 12:28 O2 Delivery Mode Room Air Allergies/Adverse Reactions: naproxen [Naproxen] Allergy (Intermediate, Verified 02/19/17 12:27) Hives Home Medications: Medication Instructions Recorded Levonorgestrel [Mirena] 1 each IY 10/21/13 Ibuprofen 11/11/16 Flexeril 02/19/17 Medical Decision Making - Diagnostics Imaging: Discussed imaging studies w/ cs associate Radiologist, I viewed and interpreted images myself ED Course/Re-evaluation: The patient is a 37 y/o female presenting with a right-sided headache and nausea for the past 9 days. She is also complaining of intermittent bilateral upper extremity numbness. 25mg IV Benadryl, 30mg IV Toradol, 10mg IV Reglan, and 1L IV NS administered. 1415: Reassessed patient, she is currently sleeping. 1535: Reassessed patient, she is still sleeping. 1600: Reassessed patient, she is awake but still has a headache. 2 tabs Mendon PO administered. 1713: Reassessed patient, she still has a headache. Head CT ordered. 1749: Spoke with radiologist, patient has a normal head CT. 1756: Reassessed patient and discussed imaging findings. Her headache was gradual in onset I do not suspect subarachnoid hemorrhage. She has no signs of infection--no fever or meningeal signs--and I do not think that this is either viral or bacterial meningitis. However, the etiology of this headache remains unclear. Idiopathic intracranial hypertension is a possible diagnosis in this setting--she does not have visual changes and is not experiencing ringing in her ears. Further evaluation would be required for this diagnosis. Return precautions provided; patient is comfortable with this plan. Differential Diagnosis: Headache including but not limited to subarachnoid hemorrhage, migraine headache , tension headache, idiopathic intracranial hypertension, and infectious causes such as meningitis, pharyngitis and sinusitis. - Data Points Medications Given: Discontinued Medications Hydrocodone Bitart/Acetaminophen (Mendon 5/325) 2 tab PO EDNOW ONE Stop: 02/19/17 16:04 Last Admin: 02/19/17 16:08 Dose: 2 tab Diphenhydramine HCl (Benadryl Injection) 25 mg IVP EDNOW ONE Stop: 02/19/17 13:08 Last Admin: 02/19/17 13:20 Dose: 25 mg Sodium Chloride (Ns) 1,000 mls @ 0 mls/hr IV ONCE ONE; Wide Open PRN Reason: Protocol Stop: 02/19/17 13:08 Last Admin: 02/19/17 13:20 Dose: 1,000 mls Ketorolac Tromethamine (Toradol) 30 mg IVP EDNOW ONE Stop: 02/19/17 13:08 Last Admin: 02/19/17 13:20 Dose: 30 mg Metoclopramide HCl (Reglan Injection) 10 mg IVP EDNOW ONE Stop: 02/19/17 13:08 Last Admin: 02/19/17 13:20 Dose: 10 mg Departure - Departure Disposition: Home, Routine, Self-Care Clinical Impression: Headache Qualifiers: Headache type: unspecified Headache chronicity pattern: acute headache Intractability: intractable Qualified Code(s): R51 - Headache Condition: Good Instructions: Acute Headache (ED) Additional Instructions: Follow-up with your primary care physician within 72 hours. Call her on Tuesday to let her know about this visit. Adult Pain & Fever Control: We recommend Acetaminophen (Tylenol) and Ibuprofen (Motrin,Advil) for pain and fever control. When fever is high or pain severe, both drugs can be used at the same time, but at different intervals. Please note the time differences. Your dose is: Acetaminophen 650 mg every 4 to 6 hours Ibuprofen 400mg every 6 hours with food OR Note: do not take Acetaminophen with Hydrocodone (Vicodin, Lortab) or Oycodone (Percocet). These medications also contain Acetaminophen. No more than 3000mg of Acetaminophen should be taken in 24 hours (for an adult). Return to the emergency department immediately for recurrence of headache, nausea, vomiting, numbness, weakness, neck pain, fever or other concerns. Referrals: Delia Staley MD [Primary Care Provider] - As per Instructions Nato Mitchell DO [Doctor of Osteopathy] - As per Instructions Stand Alone Forms: Work Excuse Report Scribed for: Betsy De Dios Report Scribed by: Tiffany Hunter Date of Report: 02/19/17 Time of Report: 13:06 Physician Review and Approval Statement: 02/19/17 12:53 Portions of this note were transcribed by the biomedical manager. I, Dr. Betsy De Dios, personally performed the history, physical exam, and medical decision- making; and confirmed the accuracy of the information in the transcribed note.
[2017-02-19] MEDS ORDERED: NS 1,000 ML IV ONE (13:07)
[2017-02-19] MEDS ORDERED: KETOROLAC 30 MG/1 ML SDV IVP ONE (13:07)
[2017-02-19] MEDS ORDERED: METOCLOPRAMIDE 10 MG/2 ML VIAL IVP ONE (13:07)
[2017-02-19] MEDS ORDERED: HYDROCODONE/APAP 5/325 TAB PO ONE (16:03)
[2017-02-19 16:11] VITALS: BP 124/65; PULSE 67; O2SAT 95
== END 2017-02-19 18:34 | disposition home or self-care (01) ==
DX: R51 Headache (principal); E86.9 Volume depletion, unspecified; Z87.891 Personal history of nicotine dependence
CPT/HCPCS: 96374; J1200; J1885; J2765

== ENCOUNTER 2017-03-05 17:42 | Emergency (ER) | payer MEDICAID ==
[2017-03-05 17:51] VITALS: BP 141/76; PULSE 66; RESP 16; TEMP 98.2; O2SAT 97
--- NOTE | 2017-03-05 18:11 | EDPHY ---
H & P Time Seen by Provider: 03/05/17 17:52 HPI/ROS: CHIEF COMPLAINT: Headache and left-sided facial swelling HISTORY OF PRESENT ILLNESS: Patient says she has had a generalized headache for the last 3 weeks. She was seen in our emergency department on February 19 and had a negative head CT. She tells me that today her headache continues and she feels like just today at the left side of her face is swollen. It is not painful and not associated with earache or dental pain or skin changes. She also says she feels like "my left face is drooping "but says when she looks in the mirror her face appears symmetric. Not better worse with light. Not associated with nausea or vomiting. No recent trauma. REVIEW OF SYSTEMS: Eye: no change in vision, no double vision ENT: no sore throat or earache Cardiac: no chest pain or syncope Pulmonary: no cough or SOB Abdomen: no vomiting, diarrhea, abdominal pain Musculoskeletal: Some ongoing back pain without any recent change. No neck pain. Skin: no rash Neuro: HPI, no vertigo, not off balance, no difficulty with speech or strength or sensation. Constitutional: no fever : no urinary symptoms A comprehensive 10 point review of systems is otherwise negative aside from elements mentioned in the history of present illness. PAST MEDICAL HISTORY: Includes anxiety and depression, GERD, cholecystectomy, left foot fracture Family history: Negative for venous thromboembolism Social history: Here with her boyfriend. Nobody she lives with has headaches. General Appearance: Alert and conversant, cooperative. Eyes: No scleral icterus. Extraocular motion intact. ENT, Mouth: Normal mucous membranes. Normal tympanic membranes. Normal pharynx. Does not have visible swelling. No tenderness to palpation of the sinuses cheek or face. No dental tenderness. No trismus. Respiratory: Normal respiratory effort, breath sounds equal, lungs are clear to auscultation. Cardiovascular: Regular rate and rhythm. Gastrointestinal: Abdomen is soft and non tender. Neurological: Alert and oriented x3. Normally conversant. Face symmetric, normal movement and sensation in all extremities. No facial droop detected by myself. Not ataxic. Normal newyyi-sj-hsbq bilaterally and no pronator drift. Normal sensation to light touch in both sides of the face. Skin: Warm and dry, no rashes. No erysipelas or facial erythema suggesting cellulitis. Face not warm to touch. Musculoskeletal: No peripheral edema and no joint swelling. Neck supple, no meningeal signs. Psychiatric: Not agitated. Smiles spontaneously during the exam. Emergency Department course/MDM: 1809: Discussed with neurology Dr. Figueroa and asked for recommendations. Recommends no additional imaging at this time, steroid taper, NSAIDs, will see in office this week. Also considered including but not limited to stroke, Soto's palsy, sinusitis, dental infection, erysipelas. Smoking Status: Former smoker Constitutional: Initial Vital Signs Temperature (C) 36.8 C 03/05/17 17:48 Heart Rate 66 03/05/17 17:48 Respiratory Rate 16 03/05/17 17:48 Blood Pressure 141/76 H 03/05/17 17:48 O2 Sat (%) 97 03/05/17 17:48 O2 Delivery Mode Room Air Allergies/Adverse Reactions: naproxen [Naproxen] Allergy (Intermediate, Verified 03/05/17 17:51) Hives Home Medications: Medication Instructions Recorded Levonorgestrel [Mirena] 1 each IY 10/21/13 Ibuprofen 11/11/16 Flexeril 02/19/17 predniSONE 10 mg PO AD #15 tab 03/05/17 Medical Decision Making Differential Diagnosis: Differential diagnosis considered for headache including but not limited to subarachnoid hemorrhage, migraine headache, tension headache and infectious causes such as meningitis, pharyngitis and sinusitis. - Data Points Medications Given: Discontinued Medications Prednisone (Prednisone) 60 mg PO EDNOW ONE Stop: 03/05/17 18:19 Last Admin: 03/05/17 18:22 Dose: 60 mg Departure - Departure Disposition: Home, Routine, Self-Care Clinical Impression: Headache Qualifiers: Headache type: unspecified Headache chronicity pattern: acute headache Intractability: not intractable Qualified Code(s): R51 - Headache Condition: Good Instructions: Acute Headache (ED) Additional Instructions: Please call follow-up this week with Dr. Figueroa from Neurology or 1 of his colleagues. Tell them that the emergency physician spoke with Dr. Figueroa you are to be seen this week in the office. Referrals: Delia Staley MD [Primary Care Provider] - As per Instructions Zeke Figueroa MD [Medical Doctor] - As per Instructions Prescriptions: predniSONE 10 mg PO AD #15 tab
[2017-03-05] MEDS ORDERED: predniSONE 20 MG TAB PO ONE (18:18)
== END 2017-03-05 18:26 | disposition home or self-care (01) ==
DX: R51 Headache (principal); Z87.891 Personal history of nicotine dependence

== ENCOUNTER → 2017-03-17 | Outpatient (CLI) | payer MEDICAID ==
[~2017-03-17] MED LIST: LIDOCAINE 1% 300 MG/30 ML SDV ONE
== END ==
LOC: FIMAGING 07:54
PROVIDERS: ATTEND Psychiatry & Neurology Neurology
PROC: 009U3ZX Drainage of Spinal Canal, Percutaneous Approach, Diagnostic (ICD-10-PCS; principal; 2017-03-17)
DX: R51 Headache (principal)

== ENCOUNTER 2017-07-15 10:16 | Emergency (ER) | payer OTHER, MEDICAID ==
--- NOTE | 2017-07-15 10:34 | CPEKG ---
Heart Rate: 75 RR Interval: 800 P-R Interval: 176 QRSD Interval: 88 QT Interval: 372 QTC Interval: 416 P [place]: 7 QRS [place]: 16 T Wave [place]: 27 EKG Severity - NORMAL ECG - EKG Impression: SINUS RHYTHM Electronically Signed By: Nato Coleman 15-Jul-2017 11:03:56
[2017-07-15 10:42] LABS: PLATELET COUNT 235 10^3/uL (150-400)
[2017-07-15] MEDS ORDERED: ONDANSETRON 4 MG/2 ML VIAL IVP ONE (10:47)
--- NOTE | 2017-07-15 10:50 | EDPHY ---
General Time Seen by Provider: 07/15/17 10:31 Narrative: CHIEF COMPLAINT: Chest pain HISTORY OF PRESENT ILLNESS: Patient complains of left-sided chest pain. This started around 9:30 a.m. When she awoke. It is severe, stabbing pain. Constant duration. Does not radiate. Worse with movement. Worse with inspiration. No nausea or vomiting. No diaphoresis. No position of comfort. She does have some shortness of breath with this but no cough. No abdominal pain or injury. She feels it may be related to a left shoulder injury that occurred on June 25. She is pending an MRI of the shoulder tomorrow for ongoing pain. No history of venous thrombolic event. No recent travel, trauma or surgery. No bleeding disorders. No other associated complaints or modifying factors. REVIEW OF SYSTEMS: Ten systems reviewed and are negative unless otherwise noted in the HPI PCP: Dr. Staley SPECIALISTS: Orthopedics PAST MEDICAL HISTORY: Uncomplicated medical history. Mirena IUD in place. PAST SURGICAL HISTORY: No surgical history SOCIAL HISTORY: Nonsmoker. Occasional alcohol marijuana use. Works as a airborne and air delivery specialist. FAMILY HISTORY: Noncontributory EXAMINATION General Appearance: Alert, no distress. Well-developed well-nourished. Tearful. Head: normocephalic, atraumatic Eyes: Pupils equal and round, no conjunctival pallor or injection ENT, Mouth: Mucous membranes moist Neck: Normal inspection, supple, non-tender Respiratory: Lungs are clear to auscultation. No wheezing, rhonchi or crackles. Cardiovascular: Regular rate and rhythm. No murmur. Gastrointestinal: Abdomen is soft and nontender Back: non-tender, no bony abnormalities Neurological: A&O, nonfocal, normal gait Skin: Warm and dry, no rash Extremities: Mild left deltoid tenderness. Moving all 4 extremities spontaneously. Psychiatric: Mood and affect normal DIFFERENTIAL DIAGNOSES: Including but not limited to pleurisy, pericarditis, ACS, PE, musculoskeletal pain, strain, sprain MDM: 10:45 a.m. Left-sided chest pain that started 9:30 a.m. Today. She is in significant pain and tearful. Vital signs are within normal limits. Lungs are clear in all wu by auscultation. She reports worsening with movement but I cannot reproduce with palpation at this time. EKG is unremarkable. I have ordered laboratory studies, chest x-ray and IV pain medication. She is in no acute distress. 11:05 a.m. I have reviewed the patient's chest x-ray. CBC and chemistry unremarkable. D- dimer and troponin are pending. 11:10 a.m. Chest x-ray has been read as negative for acute findings by radiologist. Troponin is negative. D-dimer pending. 11:20 a.m. D-dimer is negative at 0.46. I discussed with Dr. Coleman. I do feel this is musculoskeletal pain. 11:40 a.m. Patient re-evaluated. She is feeling significantly better. She is comfortable being discharged home this time. We discussed the possibility of musculoskeletal pain. Will treat this with anti-inflammatories short course of pain medication. She will follow up with her established orthopedist and primary care physicians. ED precautions for any worsening pain, redness, pain or swelling of extremities. Increasing shortness of breath. She is comfortable this plan and discharged home stable condition. SUPERVISION: Patient was independently examined, but I discussed the case with my secondary supervising physician Dr. Coleman - History Smoking Status: Former smoker - Objective Vital Signs: Initial Vital Signs Temperature (C) 98.1 F 07/15/17 10:18 Heart Rate 71 07/15/17 10:18 Respiratory Rate 20 07/15/17 10:18 Blood Pressure 106/52 L 07/15/17 10:18 O2 Sat (%) 95 07/15/17 10:18 O2 Delivery Mode Nasal Cannula O2 (L/minute) 2 Allergies/Adverse Reactions: naproxen [Naproxen] Allergy (Intermediate, Verified 03/10/17 12:45) Hives Home Medications: Medication Instructions Recorded Levonorgestrel [Mirena] 1 each IY 10/21/13 oxyCODONE HCL/ACETAMINOPHEN 1 each PO Q4-6PRN PRN #5 tablet 07/15/17 [Percocet 5-325 mg Tablet] Laboratory Results: Laboratory Results 07/15/17 10:35 07/15/17 10:35 Medications Given: Discontinued Medications Morphine Sulfate (Morphine) 4 mg IVP EDNOW ONE Stop: 07/15/17 10:48 Last Admin: 07/15/17 11:03 Dose: 4 mg Ondansetron HCl (Zofran) 4 mg IVP EDNOW ONE Stop: 07/15/17 10:48 Last Admin: 07/15/17 11:11 Dose: 4 mg Departure - Departure Disposition: Home, Routine, Self-Care Clinical Impression: Acute chest wall pain Condition: Good Instructions: Chest Pain (ED), Chest Wall Pain (ED) Additional Instructions: 1. Ibuprofen afpp-gny-[id number] every 6-8 hours as needed, 600 mg 2. Short course of pain medication as prescribed as needed. 3. Follow up with primary care physician 4. ED precautions as discussed Referrals: [facility],. [Clinic] - As per Instructions Stand Alone Forms: Work Excuse Prescriptions: oxyCODONE HCL/ACETAMINOPHEN [Percocet 5-325 mg Tablet] 1 each PO Q4-6PRN PRN #5 tablet PRN Reason: Pain, Breakthrough
[2017-07-15 11:40] VITALS: BP 131/75
== END 2017-07-15 11:57 | disposition home or self-care (01) ==
DX: R07.89 Other chest pain (principal); Z87.891 Personal history of nicotine dependence
CPT/HCPCS: 96374; J2270; J2405

== ENCOUNTER 2017-07-19 09:52 | Emergency (ER) | payer MEDICAID, OTHER ==
[2017-07-19] MEDS ORDERED: methylPREDNISolone SOD SUCC 125 MG/2 ML VIAL IVP ONE (10:04)
[2017-07-19] MEDS ORDERED: LORazepam 2 MG/ML INJ IVP ONE ×2 (10:05→11:01)
[2017-07-19] MEDS ORDERED: FAMOTIDINE 20 MG/2 ML SDV IVP ONE (10:05)
--- NOTE | 2017-07-19 10:34 | CPEKG ---
Heart Rate: 70 RR Interval: 857 P-R Interval: 176 QRSD Interval: 88 QT Interval: 384 QTC Interval: 415 P [place]: 12 QRS [place]: 22 T Wave [place]: 17 EKG Severity - NORMAL ECG - EKG Impression: SINUS RHYTHM Electronically Signed By: Javier Marrero 19-Jul-2017 14:31:49
--- NOTE | 2017-07-19 10:38 | EDPHY ---
General Time Seen by Provider: 07/19/17 10:06 Narrative: CHIEF COMPLAINT: Allergic reaction HISTORY OF PRESENT ILLNESS: Patient presents with complaints of allergic reaction. She says that she took 2 doses of Celebrex over the past 36 hr. After the dose early this morning she began to feel anxious, chest pain, swelling of the tongue and lips, tingling of the upper and lower lips. She felt very nervous with this and is concerned about allergic reaction. She has no rash. No itching. No difficulty breathing or swelling. No drooling. No exertional chest pain. No other associated complaints or modifying factors. REVIEW OF SYSTEMS: Ten systems reviewed and are negative unless otherwise noted in the HPI PCP: Dr. Staley SPECIALISTS: Worker's Compensation for Left shoulder injury PAST MEDICAL HISTORY: Orthopedic injury PAST SURGICAL HISTORY: No recent surgeries SOCIAL HISTORY: Lives and works here independently FAMILY HISTORY: Noncontributory EXAMINATION General Appearance: Alert, no distress, tearful Head: normocephalic, atraumatic Eyes: Pupils equal and round, no conjunctival pallor or injection. No periorbital cellulitis or edema. ENT, Mouth: Mucous membranes moist. No swelling of the lips or tongue. There is no posterior pharyngeal edema. The uvula is midline and airway is widely patent. Neck: Normal inspection, supple, non-tender Respiratory: Lungs are clear to auscultation. No wheeze, rhonchi or crackles Cardiovascular: Regular rate and rhythm. No murmur Gastrointestinal: Abdomen is soft and nontender Back: non-tender, no bony abnormalities Neurological: A&O, nonfocal, normal gait Skin: Warm and dry, no rash on the neck, face, chest, abdomen or back. No rash to the extremities. Extremities: Nontender, no pedal edema Psychiatric: Anxious DIFFERENTIAL DIAGNOSES: Including but not limited to allergic reaction, anxiety, stress, anaphylaxis MDM: 10:05 a.m. Possible acute allergic reaction. Patient complains of return of her chest pain or shortness of breath, for which I evaluated her last week. But she still has some sensation of swelling of the lips and tongue. I do not appreciate any of this. She also has some numbness of her upper lip with a possible anxiety component to this. Her airway is widely patent. She had no swelling of the lips, face or tongue. There is no edema of any portion of her body. No rash. I do feel that she is potentially the hyperventilating, causing her perioral paresthesia. I have ordered laboratory studies, EKG and telemetry monitor. I will watch her closely. 10:20 a.m. Patient re-evaluated. She is starting to improve. She still has no swelling of the face, lips or tongue. The airway is widely patent 10:35 a.m. Patient re-evaluated. Resting comfortably. No evidence of anaphylaxis 11:00 a.m. Notified by RN. Patient is feeling anxious. I have re-examined her at this time. She has no abnormality of the airway. She has no rash. She reports he is feeling very anxious in her legs are restless. No evidence of anaphylaxis better airway is widely patent. I have ordered 1 additional dose of Ativan. I do feel she will be stable for discharge home after this with further anti anxiety medication at home. She is comfortable this as well. She has instructions to contact her primary care physician and to discuss alternative to the Celebrex she was prescribed. We discussed ED precautions and she will be discharged home stable condition. SUPERVISION: Patient was independently examined, but I discussed the case with my secondary supervising physician Dr. Marrero - History Smoking Status: Former smoker - Objective Vital Signs: Initial Vital Signs Temperature (C) 97.9 F 07/19/17 10:01 Heart Rate 76 07/19/17 10:01 Respiratory Rate 18 07/19/17 10:01 Blood Pressure 124/55 H 07/19/17 10:01 O2 Sat (%) 96 07/19/17 10:01 O2 Delivery Mode Room Air Allergies/Adverse Reactions: naproxen [Naproxen] Allergy (Intermediate, Verified 03/10/17 12:45) Hives Home Medications: Medication Instructions Recorded Levonorgestrel [Mirena] 1 each IY 10/21/13 Celebrex 07/19/17 hydrOXYzine HCL [Hydroxyzine HCl] 50 mg PO Q6-8PRN PRN #13 tablet 07/19/17 Medications Given: Discontinued Medications Diphenhydramine HCl (Benadryl Injection) 50 mg IVP EDNOW ONE Stop: 07/19/17 10:05 Last Admin: 07/19/17 10:13 Dose: 50 mg Famotidine (Pepcid) 20 mg IVP EDNOW ONE Stop: 07/19/17 10:06 Last Admin: 07/19/17 10:13 Dose: 20 mg Lorazepam (Ativan Injection) 1 mg IVP EDNOW ONE Stop: 07/19/17 10:06 Last Admin: 07/19/17 10:22 Dose: 1 mg Lorazepam (Ativan Injection) 1 mg IVP EDNOW ONE Stop: 07/19/17 11:02 Last Admin: 07/19/17 11:06 Dose: 1 mg Methylprednisolone Sodium Succinate (Solu-Medrol) 125 mg IVP EDNOW ONE Stop: 07/19/17 10:05 Last Admin: 07/19/17 10:13 Dose: 125 mg Departure - Departure Disposition: Home, Routine, Self-Care Clinical Impression: Acute anxiety Condition: Good Instructions: Anxiety (ED), Anxiolysis in Adults (ED) Additional Instructions: 1. Hydroxyzine as prescribed as needed. Do not take care 1st dose until 3:00 p.m. Today 2. Contact her primary care physician for outpatient follow-up 3. Return to emergency department for any rash, itching 4. Contact 911 for any swelling of the face, lips or tongue, any difficulty breathing or swallowing Referrals: Delia Staley MD [Primary Care Provider] - As per Instructions Stand Alone Forms: Work Excuse Prescriptions: hydrOXYzine HCL [Hydroxyzine HCl] 50 mg PO Q6-8PRN PRN #13 tablet PRN Reason: Itching
[2017-07-19 12:00] VITALS: BP 145/77
== END 2017-07-19 12:00 | disposition home or self-care (01) ==
DX: F41.9 Anxiety disorder, unspecified (principal); Z87.891 Personal history of nicotine dependence
CPT/HCPCS: 96374; J1200; J2060; J2930

== ENCOUNTER 2018-05-07 13:55 | Emergency (ER) | payer OTHER, MEDICAID ==
--- NOTE | 2018-05-07 14:30 | EDPHY ---
H & P Smoking Status: Former smoker Time Seen by Provider: 05/07/18 14:16 HPI/ROS: CHIEF COMPLAINT: Right wrist pain HISTORY OF PRESENT ILLNESS: 38-year-old female complaining of 1 month of right wrist pain. Patient informed this is a work comp related injury is been following up with the work comp provider, performed physical therapy activities however as it is currently Tuesday and she was unable to be seen by her work comp provider timely manner she notes exacerbation of pain the past 24 hr. She has an appointment the physical therapist tomorrow and then appoint with her work comp provider on Tuesday. REVIEW OF SYSTEMS: A ten point review of systems was performed and is negative with the exception of the items mentioned in the HPI PHYSICAL EXAM (Prior to examination, patient consented to physical exam, hands were washed and my usual and customary physical exam procedures followed) 1) GENERAL: Well-developed, well-nourished, alert and oriented. Appears to be in no acute distress. 2) HEAD: Normocephalic 3) HEENT: Pupils equal, round, reactive to light bilaterally. 4) LUNGS: Breathing comfortably. 5) MUSCULOSKELETAL: Positive Samuel sign. Soft compartments. Normal coloration. 6) SKIN: Intact 7) VASCULAR: pulses and cap refill present are brisk 8) NEUROLOGIC: Radial, ulnar, median nerve function intact with no deficits appreciated on exam DIFFERENTIAL DIAGNOSIS: in no particular order including but not limited to fracture, sprain, compartment syndrome (Latonia Silva Anna) Constitutional: Initial Vital Signs Temperature (C) 36.8 C 05/07/18 14:06 Allergies/Adverse Reactions: naproxen [Naproxen] Allergy (Intermediate, Verified 03/10/17 12:45) Hives Home Medications: Medication Instructions Recorded Levonorgestrel [Mirena] 1 each IY 10/21/13 Cymbalta 05/07/18 Hydrocodone/APAP 5/325 [Himrod 1 tab PO Q6 PRN #7 tab 05/07/18 5/325 (RX)] Ibuprofen 05/07/18 MDM/Departure - MDM ED Course/Re-evaluation: Doubt septic arthritis. Doubt compartment syndrome. She is neurovascular intact. I recommend she wear her at home Velcro volar splint and keep her appointment with her physical therapist and her work comp provider in the next 1 and 2 days. Given small prescription for Himrod. Informed patient that further prescriptions will need to come from her work comp provider. She feels comfortable being discharged. Care of patient under supervision of secondary supervising physician Dr De Dios . (Ricardo,Latonia Castillo) The patient was evaluated and managed by the physician case assistant. I have reviewed this chart and I agree with the findings and plan of care as documented , as indicated by my signature. I am the secondary supervising physician. ( Betsy De Dios) - Depart Disposition: Home, Routine, Self-Care Clinical Impression: Right wrist pain Condition: Good Instructions: Wrist Injury (ED) Additional Instructions: Return to the ER immediately if you experience discoloration, have worsening pain, numbness, tingling, or any other symptoms that concern you. If you received x-rays in the emergency department today, be advised, that ligamentous , tendon, muscular, and other non-bony injury cannot be fully ruled out. Prescriptions: Hydrocodone/APAP 5/325 [Himrod 5/325 (RX)] 1 tab PO Q6 PRN #7 tab PRN Reason: Pain, Severe Referrals: Jessee Leavitt MD [Medical Doctor] - 2-3 days, call for appt.
== END 2018-05-07 14:40 | disposition home or self-care (01) ==
DX: M25.531 Pain in right wrist (principal)

== ENCOUNTER 2018-09-23 17:54 | Emergency (ER) | payer MEDICAID, OTHER | END 2018-09-23 19:43 | disposition home or self-care (01) ==